=== PATIENT | male | born 1960 | race Hispanic/Latino ===

== ENCOUNTER 2018-05-16 11:06 | Emergency (ER) | payer OTHER ==
[~2018-05-16] VITALS: Ht 170.2 cm; Wt 93.4 kg
[~2018-05-16 11:06] MED LIST: ADVIL200 MG PO
[2018-05-16] MEDS ORDERED: ONDANSETRON HCL INJ 2 MG/ML VIAL IV STA (11:17)
[2018-05-16] MEDS ORDERED: MORPHINE SULFATE INJ 4 MG/ML INJ IV STA (11:17)
[2018-05-16] MEDS ORDERED: SODIUM CHLORIDE 0.9% 1000ML 1,000 ML IV STA (11:17)
[2018-05-16 11:36] LABS: BASOPHILS # (AUTO) 0.1 (0.0-0.1); BASOPHILS % 0.4 % (0.0-1.0); EOSINOPHILS % 0.1 % (0.0-6.0); HEMATOCRIT 45.7 % (38.2-49.6); HEMOGLOBIN 15.8 g/dL (14.0-18.0); LYMPHOCYTES # (AUTO) 1.1 (1.0-3.2); LYMPHOCYTES % 8.4 % (18.0-39.1); MEAN CORPUSCULAR HGB CONC 34.6 g/dL (31-35); MEAN CORPUSCULAR VOLUME 92.5 fL (81-99); MONOCYTES # (AUTO) 1.1 (0.2-0.8); MONOCYTES % 8.4 % (4.4-11.3); NEUTROPHILS # (AUTO) 10.3 (2.1-6.9); NEUTROPHILS % 81.9 % (38.7-80.0); PLATELET COUNT 205 x10e3/uL (140-360); RED BLOOD COUNT 4.94 x10e6/uL (4.3-5.7); RED CELL DISTRIBUTION WIDTH 11.5 % (11.7-14.4)
[2018-05-16 11:47] LABS: INR 1.24; PARTIAL THROMBOPLASTIN TIME 28.6 seconds (23.8-35.5); PROTHROMBIN TIME 14.7 seconds (11.9-14.5)
[2018-05-16 11:58] LABS: ALANINE AMINOTRANSFERASE 32 IU/L (0-55); ALBUMIN 3.9 g/dL (3.5-5.0); ALBUMIN/GLOBULIN RATIO 1.1 (0.8-2.0); ALKALINE PHOSPHATASE 64 IU/L (40-150); ANION GAP 15.1 mmol/L (8-16); BLOOD UREA NITROGEN 14 mg/dL (7-26); BUN/CREATININE RATIO 18 (6-25); CALCIUM 9.5 mg/dL (8.4-10.2); CARBON DIOXIDE 21 mmol/L (22-29); CHLORIDE 104 mmol/L (98-107); CREATININE, SERUM 0.76 mg/dL (0.72-1.25); EST GLOMERULAR FILTRATION RATE > 60 ML/MIN (60-); GLUCOSE 159 mg/dL (74-118); POTASSIUM 4.1 mmol/L (3.5-5.1); SODIUM 136 mmol/L (136-145)
--- NOTE | 2018-05-16 12:20 | Diagnostic Imaging Report ---
PROCEDURE:CT RIGHT HIP WITHOUT CONTRAST COMPARISON:None. INDICATIONS:fall TECHNIQUE:Multidetector CT scanning of the right hip was performed without IV contrast. Coronal and sagittal multiplanar reformations were obtained. FINDINGS: Partially seen minimally displaced/impacted fracture of the right superior and inferior pubic ramus, please refer to the pelvic CT report for further details. The superior pubic ramus fracture appears comminuted and may extend into the anterior aspect of the acetabulum. No evidence of fracture or malalignment in the right hip. The soft tissues are unremarkable. Non-specific subcentimeter sclerotic foci in the femoral head, likely bone islands. CONCLUSION: Partially seen minimally displaced fractures of the right inferior and superior pubic rami, with possible extension into the anterior acetabulum, please refer to the pelvic CT report for further details. No evidence of additional fractures or malalignment. Dictated by: LUPE CANTU M.D. on 05/16/2018 at 12:26 Electronically approved by: LUPE CANTU M.D. on 05/16/2018 at 12:26
--- NOTE | 2018-05-16 12:27 | Diagnostic Imaging Report ---
PROCEDURE:CT PELVIS WITHOUT CONTRAST COMPARISON:None. INDICATIONS:FALL TECHNIQUE:Multidetector imaging of the pelvis with soft tissue and bony reformats. No IV or oral contrast was administered per protocol. Coronal and sagittal multiplanar reformations were obtained. FINDINGS: There is a comminuted, minimally displaced fracture of the right superior pubic ramus with possible extension into the anterior acetabulum (series 3, image 71). The right femoro-acetabular alignment is maintained. There is a minimally displaced/impacted fracture of the right inferior pubic ramus. Mild asymmetric enlargement of the right pelvic side wall musculature, likely reflecting a small hematoma. Additional pelvic bones are unremarkable. Left hip and bilateral sacroiliac joints are unremarkable. Partially seen left sided renal cysts. Atherosclerotic calcifications of the abdominal aorta. Enlarged prostate measuring up to [address] evidence of diverticulitis. Fat containing umbilical hernia. CONCLUSION: Comminuted, minimally displaced fracture of the right superior pubic ramus with possible extension into the anterior acetabulum. Small adjacent right pelvic side wall hematoma. The right femoro-acetabular alignment is maintained. Dictated by: LUPE CANTU M.D. on 05/16/2018 at 12:33 Electronically approved by: LUPE CANTU M.D. on 05/16/2018 at 12:33
[2018-05-16 14:36] VITALS: BP 198/94
== END 2018-05-16 14:10 | disposition home or self-care (01) ==
LOC: ER 11:06
DX: M25.551 Pain in right hip (principal); S32.591A Other specified fracture of right pubis, initial encounter for closed fracture; W18.39XA Other fall on same level, initial encounter; Y99.0 Civilian activity done for income or pay
CPT/HCPCS: 36415; 72192; 73700; 80053; 85025; 85610; 85730; 99284; J2270; J2405; J7030

== ENCOUNTER → 2018-10-02 | Outpatient (RCR) | payer OTHER | LOC: PT 09-05 09:58 | PROVIDERS: ATTEND Specialist | DX: S32.9XXA Fracture of unspecified parts of lumbosacral spine and pelvis, initial encounter for closed fracture (principal); M62.81 Muscle weakness (generalized); M25.551 Pain in right hip | CPT/HCPCS: 97110 ×7; 97161; G8978; G8979 ==

== ENCOUNTER 2018-10-25 14:00 | Outpatient (RCR) | payer OTHER | END 2018-11-02 | LOC: PT 14:00 | PROVIDERS: ATTEND Specialist | DX: S32.9XXA Fracture of unspecified parts of lumbosacral spine and pelvis, initial encounter for closed fracture (principal) | CPT/HCPCS: 97110 ×5; 97139; G8978; G8979 ==